=== PATIENT | male | born 1955 | race Hispanic/Latino ===

== ENCOUNTER → 2017-12-04 | Day surgery (SDC) | payer BC ==
[2017-11-30 10:58] LABS: BASOPHILS % 0.3 % (0.0-1.0); EOSINOPHILS # (AUTO) 0.1 (0.0-0.4); EOSINOPHILS % 1.1 % (0.0-6.0); HEMATOCRIT 42.1 % (38.2-49.6); HEMOGLOBIN 14.8 g/dL (14.0-18.0); LYMPHOCYTES # (AUTO) 1.8 (1.0-3.2); MEAN CORPUSCULAR HEMOGLOBIN 28.8 pg (28-32); MEAN CORPUSCULAR HGB CONC 35.2 g/dL (31-35); MEAN CORPUSCULAR VOLUME 82.1 fL (81-99); MONOCYTES # (AUTO) 0.9 (0.2-0.8); MONOCYTES % 8.7 % (4.4-11.3); NEUTROPHILS % 71.6 % (38.7-80.0); PLATELET COUNT 216 x10e3/uL (140-360); RED BLOOD COUNT 5.13 x10e6/uL (4.3-5.7); RED CELL DISTRIBUTION WIDTH 12.6 % (11.7-14.4)
[2017-11-30 11:17] LABS: ANION GAP 15.8 mmol/L (8-16); BLOOD UREA NITROGEN 19 mg/dL (7-26); BUN/CREATININE RATIO 18 (6-25); CALCIUM 9.9 mg/dL (8.4-10.2); CARBON DIOXIDE 25 mmol/L (22-29); CHLORIDE 102 mmol/L (98-107); CREATININE, SERUM 1.08 mg/dL (0.72-1.25); EST GLOMERULAR FILTRATION RATE > 60 ML/MIN (60-); GLUCOSE 148 mg/dL (74-118); POTASSIUM 3.8 mmol/L (3.5-5.1); SODIUM 139 mmol/L (136-145)
--- NOTE | 2017-11-30 11:34 | Diagnostic Imaging Report ---
EXAMINATION: PA and lateral views of the chest. COMPARISON: None CLINICAL HISTORY: Preoperative evaluation, hernia DISCUSSION: Lines/tubes: None. Lungs: The lungs are well inflated and clear. No pneumonia or pulmonary edema. Pleura: There is no pleural effusion or pneumothorax. Heart and mediastinum: The cardiomediastinal silhouette is normal. Bones and soft tissues: No acute bony abnormalities. IMPRESSION: No acute cardiopulmonary abnormalities. Signed by: Dr. Alvarado Medina M.D. on 11/30/2017 11:30 AM
[~2017-12-04] MED LIST: ACETAMINOPHEN 1000 MG/100 ML IV ONE; BUPIVACAINE 0.25%/EPI 30ML SDV INJ ONE; DESFLURANE 240 ML BTL INH ONE; DEXAMETHASONE SOD PHOS INJ 4 MG/ML VIAL ONE; EPHEDRINE SULFATE INJ 50 MG/10 ML SYR ONE; FENTANYL CITRATE/PF 100MCG/2 ML INJ ONE; HYDROCODONE/APAP 7.5MG-325MG 1 EA TAB ONE; KETAMINE HCL INJ 50 MG/ML 10 ML VIAL ONE; LABETALOL HCL 5 MG/ML 20ML VIAL ONE; LIDOCAINE HCL 2% JELLY 5 ML TUBE ONE; LIDOCAINE HCL 2% LOCAL INJ 5 ML SDV VIAL INJ ONE; LISINOPRIL-HCT1 EAC1 PO; METFORMIN HCL500 MG PO; MIDAZOLAM HCL 2 MG/2 ML VIAL ONE; ONDANSETRON HCL INJ 2 MG/ML VIAL ONE; PROPOFOL IV EMULSION 10 MG/ML 20 ML VIAL ONE; ROCURONIUM BROMIDE 10 MG/ML 5ML VIAL ONE; SUGAMMADEX SODIUM 200 MG/2 ML VIAL IV ONE
--- NOTE | 2017-12-04 12:58 | Operative Report ---
DATE OF PROCEDURE: December 04, 2017 PREOPERATIVE DIAGNOSIS: Longstanding incarcerated left inguinoscrotal hernia. POSTOPERATIVE DIAGNOSIS: Longstanding incarcerated left inguinoscrotal hernia. PROCEDURE PERFORMED: Exploration of the left groin, repair of incarcerated left inguinoscrotal hernia with omentectomy, and placement of Ultrapro Hernia System oval type. ANESTHESIA: General endotracheal. ESTIMATED BLOOD LOSS: Minimal. DRAINS: None. COMPLICATIONS: None. INDICATIONS AND FINDINGS: This patient is a 61-year-old male with a longstanding left inguinal hernia progressively becoming worse. INTRAOPERATIVE FINDINGS: The patient had an incarcerated but not strangulated left inguinal hernia with herniation of the entire omentum through a very small defect. The omentum could not be reduced due to the small size of the defect, and then we had to perform an omentectomy and then place an Ultrapro Hernia System, oval type. There was no evidence of femoral herniation period. DESCRIPTION OF PROCEDURE: With the patient lying on the operative table in the supine position, after administration of general endotracheal anesthesia, he was prepped and draped for repair of an incarcerated left inguinoscrotal hernia. Preemptive anesthesia was given with 0.25% Marcaine with epinephrine as an ilioinguinal nerve block and an incisional nerve block. A transverse groin incision was made and deepened through the skin and subcutaneous tissue. Then the external oblique aponeurosis was identified. The hernia, due to the large size, was stuck in the inguinal canal, and we had to then dissect the cord along with the hernia from the surrounding tissues and had to put pressure on the scrotum to try to reduce the hernia. We had to take down all of the adhesions of the cord to the hernia sac and the surrounding tissues including transecting the cremaster veil. The Enseal instrument was used for that at times. At this point, we went ahead and, after we reduced the hernia and removed it from the scrotal sac into the wound, which also included the testicle that was intimately attached to the cord, we then at this point pulled the testicle back into the scrotum. Then we the hernia sac from the cord. The dissection was tedious. After we did that, we had everything from the cord. The only remaining structures in the cord were the blood supply to the cord and the vas. The cremaster veil had to be all removed. The sac was then opened. It contained the omentum. The omentum was transected between Enseal instrument, achieving full cautery. Then after performing a full omentectomy, the remaining part was short and was then reduced. We went ahead and excised the sac with the Enseal instrument, achieving hemostasis. Then we closed the sac with a running #0 Vicryl on itself to achieve hemostasis. Then we developed the preperitoneal space further to accommodate the mesh. Then the mesh was placed in the preperitoneal space with the underlay part of the mesh over the direct space and the overlay part of the mesh over the inguinal canal floor. A slit was made to accommodate the cord. The mesh was secured to local tissues using a series of interrupted 2-0 Ethibond sutures. The wound was irrigated. Bleeding points were cauterized. Then the wound was closed in layers using #0 Vicryl for the external oblique aponeurosis and 2-0 chromic for the soft tissues and the Marvin's fascia as well as soft tissues. The skin was closed using queenie. We gave him more local as a field block at the end of the procedure. Then we made sure that the testicle was in the scrotum in anatomic position. Job#: [id number]
[2017-12-04 14:00] VITALS: BP 129/80
== END | disposition home or self-care (01) ==
LOC: OR 05:20
PROVIDERS: ATTEND Surgery
DX: K40.30 Unilateral inguinal hernia, with obstruction, without gangrene, not specified as recurrent (principal); E11.9 Type 2 diabetes mellitus without complications; I10 Essential (primary) hypertension; M54.9 Dorsalgia, unspecified; I49.9 Cardiac arrhythmia, unspecified; F41.9 Anxiety disorder, unspecified; Z01.810 Encounter for preprocedural cardiovascular examination; Z01.812 Encounter for preprocedural laboratory examination; Z01.818 Encounter for other preprocedural examination; Z79.84 Long term (current) use of oral hypoglycemic drugs; Z87.828 Personal history of other (healed) physical injury and trauma
CPT/HCPCS: 36415 ×2; 49507; 71046; 80048; 82948; 85025; 88302; 93005; C1781; J1100; J2001 ×2; J2250; J2405; J3490